=== PATIENT | male | born 1950 | race African-American/Black ===

== ENCOUNTER 2023-04-14 08:56 | Inpatient (IN) | payer MEDICARE ==
[2023-04-14] MEDS ORDERED: Regadenoson 0.4 MG/5 ML SYRINGE ONE (08:57)
[2023-04-14] MEDS ORDERED: Acetaminophen 325 MG TAB PO PRN (10:29)
[2023-04-14] MEDS ORDERED: Ondansetron PF 4 MG/2 ML Vial IVP PRN (10:29)
[2023-04-14 10:42] VITALS: BMI 28.3
[2023-04-14 11:36] LABS: Troponin I Less than 0.010 ng/mL (< 0.028)
[2023-04-14] MEDS ORDERED: Morphine 2 MG/ML VIAL SLOW IVP SCH (13:30)
[2023-04-14] MEDS: Metoprolol Tartrate 25 MG TAB PO SCH (19:31)
[2023-04-14] MEDS: Morphine 2 MG/ML VIAL SLOW IVP PRN (19:31)
[2023-04-14] MEDS: Famotidine 20 MG TAB PO SCH (19:31)
[2023-04-15] MEDS: Morphine 2 MG/ML VIAL SLOW IVP PRN (04:30)
[2023-04-15] MEDS: Ipratropium/Albuterol 3 ML NEB NEB PRN ×2 (04:55→16:31)
[2023-04-15 05:17] LABS: Hemoglobin 15.8 g/dL (14.0-18.0); Manual Diff?? YES; Mean Corpuscular HGB CONC 32.5 g/dL (32.0-36.0); Mean Corpuscular Hemoglobin 32.3 pg (27.0-31.0); Mean Corpuscular Volume 99.4 fl (78.0-98.0); Mean Platelet Volume 10.9 fL (7.4-10.4); Platelet Count 150 10x3/uL (130-400); RBC Distribution Width 15.9 % (11.5-14.5); Red Blood Cell (RBC) Count 4.89 mill/uL (4.70-6.10); White Blood Cell (WBC) Count 10.9 10x3/uL (4.8-10.8)
[2023-04-15 05:52] LABS: Anion Gap 12 mmol/L (10-20); BUN (Urea Nitrogen) 17 mg/dL (8.4-25.7); Calc. Creatinine Clearance 75 mL/min (70-130); Carbon Dioxide 26 mmol/L (23-31); Cardiac Risk 3.5 (Less than 4.5); Chloride 104 mmol/L (98-107); Cholesterol 141 mg/dl (< 200 Desired); Estimated GFR 63; Glucose 95 mg/dL (80-115); HDL Cholesterol 40 mg/dL (>60 Neg Risk); LDL Cholesterol, Calculated 79 mg/dL; Potassium 4.7 mmol/L (3.5-5.1); Sodium 137 mmol/L (136-145); Triglycerides 108 mg/dL (Less than 150)
[2023-04-15 06:11] LABS: Delete Auto Diff?? YES
[2023-04-15 06:49] LABS: Band 3 % (5-11); CellaVision Operator ID LAB.GE; Lymphocytes 54 % (21-51); Monocytes 3 % (0-10); Neutrophil 36 % (42-75); Nucleated RBC (Manual Ct) 1 % (0); Platelet Adequacy Comment Platelets Normal; Polychromasia SLIGHT = 2-3 cells HPF (0-2); Reactive Lymphocytes 3 % (0-10); Total Cell Count 102
[2023-04-15] MEDS: Metoprolol Tartrate 25 MG TAB PO SCH ×2 (09:14→20:08)
[2023-04-15] MEDS: Famotidine 20 MG TAB PO SCH ×2 (09:14→20:08)
[2023-04-15] MEDS: Aspirin Chewable 81 MG TAB PO SCH (09:14)
[2023-04-16] MEDS: Aspirin Chewable 81 MG TAB PO SCH (10:02)
[2023-04-16] MEDS: Metoprolol Tartrate 25 MG TAB PO SCH (10:02)
[2023-04-16] MEDS: Famotidine 20 MG TAB PO SCH ×2 (10:03→20:06)
[2023-04-16] MEDS ORDERED: Guaifenesin DM 100-10/5 ML UDCUP PO PRN (10:46)
[2023-04-16] MEDS: Sacubitril 24MG/Valsartan 26 MG TAB PO SCH (20:06)
[2023-04-17] MEDS: Famotidine 20 MG TAB PO SCH ×2 (09:12→20:12)
[2023-04-17] MEDS: Carvedilol 3.125 MG TAB PO SCH ×2 (09:12→17:28)
[2023-04-17] MEDS: Sacubitril 24MG/Valsartan 26 MG TAB PO SCH ×2 (09:12→20:13)
[2023-04-17] MEDS: Aspirin Chewable 81 MG TAB PO SCH (09:13)
[2023-04-18 03:56] VITALS: TEMP 97.4
[2023-04-18 06:18] LABS: Anion Gap 12 mmol/L (10-20); BUN (Urea Nitrogen) 16 mg/dL (8.4-25.7); Calc. Creatinine Clearance 80 mL/min (70-130); Calcium 8.9 mg/dL (7.8-10.44); Carbon Dioxide 25 mmol/L (23-31); Chloride 106 mmol/L (98-107); Estimated GFR 68; Glucose 92 mg/dL (80-115); Magnesium 2.1 mg/dL (1.6-2.6); Potassium 4.7 mmol/L (3.5-5.1); Sodium 138 mmol/L (136-145)
[2023-04-18 08:46] VITALS: BP 120/85
[2023-04-18] MEDS: Aspirin Chewable 81 MG TAB PO SCH (09:20)
[2023-04-18] MEDS: Sacubitril 24MG/Valsartan 26 MG TAB PO SCH (09:20)
[2023-04-18] MEDS: Famotidine 20 MG TAB PO SCH (09:20)
[2023-04-18] MEDS: Carvedilol 3.125 MG TAB PO SCH (09:20)
== END 2023-04-18 11:38 | disposition home or self-care (01) | DRG 313 ==
LOC: 2SW 10:10 → OBSVTOIN 04-15 14:52
PROVIDERS: ADMIT Internal Medicine; ATTEND Hospitalist
DX: R07.9 Chest pain, unspecified (principal); I48.20 Chronic atrial fibrillation, unspecified; I42.8 Other cardiomyopathies; I10 Essential (primary) hypertension; F17.210 Nicotine dependence, cigarettes, uncomplicated; Z79.899 Other long term (current) drug therapy
CPT/HCPCS: 36415; 78452; 80048; 80061; 83735; 85025; 93005; 93010; 93017; 93306; 94640; 94760; 96372; 96374; 96376; A9500; G0378; J1650; J2272; J2785; J7620